=== PATIENT | male | born 1975 | race Hispanic/Latino ===

== ENCOUNTER → 2023-02-07 | Outpatient (CLI) | payer OTHER ==
[~2023-02-07] MED LIST: ALBUTEROL 0.083% 2.5 MG/3 ML INH IH ONE
[2023-02-07 16:33] LABS: THYROID STIMULATING HORMONE 4.37 uIU/mL (0.36-3.74)
== END | disposition home or self-care (01) ==
LOC: RESP 12:55
PROVIDERS: ATTEND Chiropractor
DX: R06.02 Shortness of breath (principal); E03.9 Hypothyroidism, unspecified
CPT/HCPCS: 36415; 71046; 84439; 84443; 84481; 94060